=== PATIENT | female | born 1960 | race Caucasian/White ===

== ENCOUNTER 2022-05-18 17:07 | Emergency (ER) | payer MEDICAID ==
[~2022-05-18] VITALS: Ht 172.7 cm; Wt 52.2 kg
[~2022-05-18 17:07] MED LIST: LORA-269 PO; TRAZ-251 PO; VENL225T3 PO
[2022-05-18 18:05] LABS: BASOPHILS # (AUTO) 0.1 X10'3 (0-0.2); BASOPHILS % (AUTO) 1.1 % (0-1); EOSINOPHILS # (AUTO) 0.1 X10'3 (0-0.9); EOSINOPHILS % (AUTO) 1.3 % (0-6); HEMATOCRIT 36.6 % (35.0-45.0); HEMOGLOBIN 12.6 g/dl (12.0-16.0); LYMPHOCYTES # (AUTO) 1.7 X10'3 (1.1-4.8); LYMPHOCYTES % (AUTO) 23.5 % (21-51); MEAN CORPUSCULAR HEMOGLOBIN 32.1 PG (27.0-31.0); MEAN CORPUSCULAR HGB CONC 34.5 g/dL (33.0-36.5); MEAN CORPUSCULAR VOLUME 92.9 FL (78-98); MEAN PLATELET VOLUME 7.3 FL (7.4-10.4); MONOCYTES # (AUTO) 0.8 X10'3 (0-0.9); MONOCYTES % (AUTO) 10.3 % (2-12); NEUTROPHILS # (AUTO) 4.7 X10'3 (1.8-7.7); NEUTROPHILS % (AUTO) 63.8 % (42-75); PLATELET COUNT 306 X10'3 (140-440); RED BLOOD COUNT 3.94 X10'6 (4.20-5.60); RED CELL DISTRIBUTION WIDTH 13.8 % (11.5-14.5); WHITE BLOOD COUNT 7.3 X10'3 (4.5-11.0)
[2022-05-18 18:16] LABS: ALANINE AMINOTRANSFERASE 31 U/L (12-78); ALBUMIN 4.2 G/DL (3.4-5.0); ALKALINE PHOSPHATASE 64 IU/L (46-116); ANION GAP 12 (8-16); ASPARTATE AMINO TRANSFERASE 68 U/L (10-37); BLOOD UREA NITROGEN 25 MG/DL (7-18); CALCIUM 9.4 MG/DL (8.5-10.1); CHLORIDE 102 MMOL/L (99-107); CREATININE 1.19 MG/DL (0.40-0.90); GLUCOSE 97 MG/DL (70-104); POTASSIUM 3.8 MMOL/L (3.5-5.1); SODIUM 139 MMOL/L (135-145); TOTAL CARBON DIOXIDE 25.2 MMOL/L (24-32); TOTAL PROTEIN 8.4 G/DL (6.4-8.2); eGFR 46 ML/MIN
[2022-05-18 18:26] LABS: ETHANOL < 0.010 GM/DL (0.0-0.010)
[2022-05-18 19:40] LABS: URINE AMPHETAMINE SCREEN NEGATIVE (Neg); URINE BARBITUATE SCREEN NEGATIVE (Neg); URINE BENZODIAZEPINES SCREEN NEGATIVE (Neg); URINE CANNABINOID SCREEN POSITIVE (Neg); URINE COCAINE SCREEN NEGATIVE (Neg); URINE METHADONE SCREEN NEGATIVE (Neg); URINE OPIATE SCREEN NEGATIVE (Neg); URINE PHENCYCLIDINE SCREEN NEGATIVE (Neg)
[2022-05-18 19:41] LABS: CLARITY,URINE CLEAR (Clear); COLOR,URINE YELLOW (Yellow); GLUCOSE, URINE NEGATIVE (Neg); KETONES,URINE 40 mg/dl (Neg); LEUKOCYTE ESTERASE ,URINE TRACE (Neg); NITRITES, URINE NEGATIVE (Neg); OCCULT BLOOD,URINE SMALL (Neg); PROTEIN,URINE 30 mg/dl (Neg); UROBILINOGEN,URINE 0.2 E.U/dL (0.2-1.0)
[2022-05-18 19:47] LABS: UA COLLECTION TYPE CLN CATCH MIDSTREAM
[2022-05-18 20:07] LABS: BACTERIA,URINE 1+ /HPF (Neg); HYALINE CASTS 0-3 /LPF (NEGATIVE); MUCUS STRANDS FEW /LPF (Neg); SQUAMOUS EPITHELIAL CELL,UR FEW /LPF (FEW)
[2022-05-18] MEDS ORDERED: EFF37.5XRC PO (20:21)
[2022-05-18] MEDS ORDERED: TRAZ-251 PO (20:21)
[2022-05-18] MEDS ORDERED: traZODone 50mg tablet PO PRN (20:35)
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
--- NOTE | 2022-05-18 20:48 | NUR ---
PACKET SENT TO [facility]
--- NOTE | 2022-05-18 22:06 | NUR ---
The patient appears to be sleeping
--- NOTE | 2022-05-18 23:27 | NUR ---
Report to Alex Trejo
--- NOTE | 2022-05-18 23:57 | NUR ---
Patient up to use the bathroom
--- NOTE | 2022-05-19 00:54 | NUR ---
The patient is awake and resting quietly on her bed.
--- NOTE | 2022-05-19 01:07 | NUR ---
Dr. Ren made aware patient asking for sleep medications and orders received
[2022-05-19] MEDS ORDERED: Melatonin 3mg tablet PO STA (01:08)
--- NOTE | 2022-05-19 03:07 | NUR ---
The patient has been awake off and on but currently appears to be sleeping
--- NOTE | 2022-05-19 04:42 | NUR ---
The patient appears to be sleeping
[2022-05-19 05:18] VITALS: BP 107/59
--- NOTE | 2022-05-19 05:38 | NUR ---
The patient appears to be sleeping
--- NOTE | 2022-05-19 06:35 | NUR ---
Patient asleep in supine position. RR even and unlabored.
--- NOTE | 2022-05-19 07:55 | NUR ---
Patient accepted to [facility]. They are just waiting on a dedicated truck driver.
[2022-05-19] MEDS ORDERED: venlafaxine XR 37.5mg cap (Q24H) PO SCH (08:00)
--- NOTE | 2022-05-19 10:16 | NUR ---
Patient lying on her bed relaxing. RR even and unlabored. No s/sx of distress.
--- NOTE | 2022-05-19 12:48 | NUR ---
Patient is lying on her left side napping while waiting for pickup to [facility].
== END 2022-05-19 13:10 ==
LOC: ER 17:08
DX: F32.A Depression, unspecified (principal); Z20.822 Contact with and (suspected) exposure to COVID-19; R45.851 Suicidal ideations
CPT/HCPCS: 36415; 80053; 80305; 80320; 81001; 84443; 85025; 87811; 99285

== ENCOUNTER 2022-06-15 16:48 | Emergency (ER) | payer MEDICAID ==
[~2022-06-15] VITALS: Ht 172.7 cm; Wt 57.0 kg
[~2022-06-15 16:48] MED LIST changes: +EFF37.5XRC PO; -LORA-269 PO; -VENL225T3 PO
[2022-06-15] MEDS ORDERED: acetaminophen 325mg tablet PO ONE (17:20)
[2022-06-15 17:45] LABS: BASOPHILS # (AUTO) 0.1 X10'3 (0-0.2); BASOPHILS % (AUTO) 0.6 % (0-1); EOSINOPHILS # (AUTO) 0.5 X10'3 (0-0.9); EOSINOPHILS % (AUTO) 5.6 % (0-6); HEMATOCRIT 36.7 % (35.0-45.0); HEMOGLOBIN 12.3 g/dl (12.0-16.0); LYMPHOCYTES # (AUTO) 1.9 X10'3 (1.1-4.8); LYMPHOCYTES % (AUTO) 21.3 % (21-51); MEAN CORPUSCULAR HEMOGLOBIN 31.5 PG (27.0-31.0); MEAN CORPUSCULAR HGB CONC 33.5 g/dL (33.0-36.5); MEAN CORPUSCULAR VOLUME 93.9 FL (78-98); MEAN PLATELET VOLUME 6.8 FL (7.4-10.4); MONOCYTES # (AUTO) 0.6 X10'3 (0-0.9); MONOCYTES % (AUTO) 6.3 % (2-12); NEUTROPHILS % (AUTO) 66.2 % (42-75); PLATELET COUNT 361 X10'3 (140-440); RED BLOOD COUNT 3.91 X10'6 (4.20-5.60); WHITE BLOOD COUNT 9.1 X10'3 (4.5-11.0)
[2022-06-15 18:02] LABS: ALANINE AMINOTRANSFERASE 28 U/L (12-78); ALKALINE PHOSPHATASE 88 IU/L (46-116); ANION GAP 11 (8-16); ASPARTATE AMINO TRANSFERASE 44 U/L (10-37); BILIRUBIN,TOTAL 0.3 MG/DL (0.1-1.0); BLOOD UREA NITROGEN 23 MG/DL (7-18); BUN/CREATININE RATIO 17.7 (6.6-38.0); CALCIUM 9.5 MG/DL (8.5-10.1); CHLORIDE 101 MMOL/L (99-107); GLUCOSE 101 MG/DL (70-104); POTASSIUM 4.4 MMOL/L (3.5-5.1); SODIUM 140 MMOL/L (135-145); TOTAL CARBON DIOXIDE 28.3 MMOL/L (24-32); eGFR 42 ML/MIN
[2022-06-15 18:03] LABS: ETHANOL < 0.010 GM/DL (0.0-0.010)
[2022-06-15 20:09] LABS: CLARITY,URINE CLEAR (Clear); COLOR,URINE YELLOW (Yellow); GLUCOSE, URINE NEGATIVE (Neg); KETONES,URINE NEGATIVE (Neg); LEUKOCYTE ESTERASE ,URINE NEGATIVE (Neg); NITRITES, URINE NEGATIVE (Neg); OCCULT BLOOD,URINE NEGATIVE (Neg); PH,URINE 5.5 (4.8-8.0); PROTEIN,URINE NEGATIVE (Neg); UROBILINOGEN,URINE 0.2 E.U/dL (0.2-1.0)
[2022-06-15 20:12] LABS: UA COLLECTION TYPE CLN CATCH MIDSTREAM
[2022-06-15 20:20] LABS: URINE AMPHETAMINE SCREEN NEGATIVE (Neg); URINE BARBITUATE SCREEN NEGATIVE (Neg); URINE BENZODIAZEPINES SCREEN NEGATIVE (Neg); URINE CANNABINOID SCREEN NEGATIVE (Neg); URINE COCAINE SCREEN NEGATIVE (Neg); URINE METHADONE SCREEN NEGATIVE (Neg); URINE OPIATE SCREEN NEGATIVE (Neg); URINE PHENCYCLIDINE SCREEN NEGATIVE (Neg)
--- NOTE | 2022-06-16 00:40 | NUR ---
Patient ambulatory, steady gait from Main ED to ED OF Bed 24 with RN. No distress observed. Patient c/o depression and denies S/I "at this moment." Patient placed in bed and given a couple of warm blankets. Patient has a fresh pitcher of ice water on her bedside table. No needs at this time. Continue to monitor.
--- NOTE | 2022-06-16 02:32 | NUR ---
Patient sleeping supine. Respirations equal and nonlabored. No distress observed. Continue to monitor.
--- NOTE | 2022-06-16 04:38 | NUR ---
Patient sleeping on left side. No distress observed. Continue to monitor.
[2022-06-16 06:06] VITALS: BP 119/70
[2022-06-16] MEDS ORDERED: TRAZ-256 PO (09:28)
[2022-06-16] MEDS ORDERED: GABA-534 PO (09:31)
[2022-06-16] MEDS ORDERED: SERT25TA PO (09:34)
[2022-06-16] MEDS ORDERED: OLAN5TAB5 PO (09:35)
[2022-06-16] MEDS ORDERED: GABA300C PO (09:43)
[2022-06-16] MEDS ORDERED: OLANZapine 5mg rapidly disint. tablet PO SCH (10:52)
[2022-06-16] MEDS ORDERED: venlafaxine XR 75mg capsule (Q24H) PO SCH (10:52)
[2022-06-16] MEDS ORDERED: sertraline 50mg tablet PO SCH (10:53)
[2022-06-16] MEDS ORDERED: gabapentin 300mg capsule PO SCH (13:00)
--- NOTE | 2022-06-16 13:10 | NUR ---
[facility] accepted pt for inpt treatment. Dr. Davis accepted. Pt to be picked up at 14:30 by [facility] for transport. Pt aware of transfer.
[2022-06-16] MEDS ORDERED: traZODone 50mg tablet PO SCH (21:00)
== END 2022-06-16 15:09 ==
LOC: ER 16:49
DX: F32.A Depression, unspecified (principal); Z20.822 Contact with and (suspected) exposure to COVID-19; R45.851 Suicidal ideations
CPT/HCPCS: 36415; 80053; 80305; 80320; 81003; 85025; 87811; 99285

== ENCOUNTER 2022-07-04 17:04 | Emergency (ER) | payer BC, MEDICAID ==
[~2022-07-04] VITALS: Ht 167.6 cm; Wt 57.0 kg
[~2022-07-04 17:04] MED LIST changes: +GABA300C PO; +OLAN5TAB5 PO; +SERT25TA PO; +TRAZ-256 PO
[2022-07-04 17:07] VITALS: BP 166/92
[2022-07-04] MEDS ORDERED: IBUP-1985 PO (18:20)
[2022-07-04] MEDS ORDERED: ketorolac trometh inj. 60 MG/2 ML VIAL IM ONE (18:20)
== END 2022-07-04 20:58 | disposition home or self-care (01) ==
LOC: ER 17:04
DX: S93.401A Sprain of unspecified ligament of right ankle, initial encounter (principal); M25.571 Pain in right ankle and joints of right foot; J43.9 Emphysema, unspecified; Z72.89 Other problems related to lifestyle; Z79.899 Other long term (current) drug therapy; W19.XXXA Unspecified fall, initial encounter; Y93.89 Activity, other specified; Y92.89 Other specified places as the place of occurrence of the external cause; Y99.8 Other external cause status
CPT/HCPCS: 73610; 73630; 96372; 99284; J1885; L4360

== ENCOUNTER 2025-01-20 12:19 | Emergency (ER) | payer BC, OTHER ==
[~2025-01-20] VITALS: Ht 172.7 cm; Wt 49.0 kg
[~2025-01-20 12:19] MED LIST changes: -EFF37.5XRC PO; +IBUP-1985 PO; +VENL37.59 PO
[2025-01-20 12:20] VITALS: TEMP 98.2
[2025-01-20 13:02] VITALS: BP 130/80; PULSE 63; RESP 15; O2SAT 98
[2025-01-20 13:04] LABS: BASOPHILS # (AUTO) 0.1 X10'3 (0-0.2); BASOPHILS % (AUTO) 1.1 % (0-1); EOSINOPHILS % (AUTO) 0.4 % (0-6); HEMATOCRIT 35.4 % (35.0-45.0); HEMOGLOBIN 11.9 g/dl (12.0-16.0); LYMPHOCYTES # (AUTO) 1.2 X10'3 (1.1-4.8); LYMPHOCYTES % (AUTO) 16.5 % (21-51); MEAN CORPUSCULAR HEMOGLOBIN 32.7 PG (27.0-31.0); MEAN CORPUSCULAR HGB CONC 33.6 g/dL (33.0-36.5); MEAN CORPUSCULAR VOLUME 97.5 FL (78-98); MEAN PLATELET VOLUME 7.1 FL (7.4-10.4); MONOCYTES # (AUTO) 0.3 X10'3 (0-0.9); MONOCYTES % (AUTO) 3.9 % (2-12); NEUTROPHILS # (AUTO) 5.8 X10'3 (1.8-7.7); NEUTROPHILS % (AUTO) 78.1 % (42-75); PLATELET COUNT 295 X10'3 (140-440); RED BLOOD COUNT 3.63 X10'6 (4.20-5.60); RED CELL DISTRIBUTION WIDTH 14.2 % (11.5-14.5); WHITE BLOOD COUNT 7.4 X10'3 (4.5-11.0)
[2025-01-20 13:22] LABS: ANION GAP 12 (8-16); BLOOD UREA NITROGEN 27 MG/DL (7-18); BUN/CREATININE RATIO 34.2 (10.0-20.0); CHLORIDE 101 MMOL/L (99-107); CREATININE 0.79 MG/DL (0.40-0.90); GLUCOSE 99 MG/DL (70-104); POTASSIUM 3.7 MMOL/L (3.5-5.1); SODIUM 138 MMOL/L (135-145); eCRCL 55 ML/MIN; eGFR 73 ML/MIN
[2025-01-20 13:23] LABS: ALANINE AMINOTRANSFERASE 41 U/L (12-78); ALBUMIN 3.9 G/DL (3.4-5.0); ALKALINE PHOSPHATASE 107 IU/L (46-116); ASPARTATE AMINO TRANSFERASE 93 U/L (10-37); BILIRUBIN,TOTAL 0.7 MG/DL (0.1-1.0); CALCIUM 8.9 MG/DL (8.5-10.1)
[2025-01-20 13:31] LABS: PRO BRAIN NATRIURETIC PEPTIDE 136 PG/ML (0-125)
== END 2025-01-20 16:17 | disposition home or self-care (01) ==
LOC: ER 12:19
DX: R07.9 Chest pain, unspecified (principal); E78.5 Hyperlipidemia, unspecified; J43.9 Emphysema, unspecified; F17.210 Nicotine dependence, cigarettes, uncomplicated
CPT/HCPCS: 36415; 71045; 80053; 83880; 84484; 85025; 93005; 99285